=== PATIENT | female | born 1985 | race Caucasian/White ===

== ENCOUNTER → 2020-10-29 | Outpatient (CLI) | payer BC | LOC: RAD 16:32 | DX: E03.9 Hypothyroidism, unspecified (principal) | CPT/HCPCS: 73130; 73630 ==

== ENCOUNTER → 2021-04-15 | Outpatient (CLI) | payer BC | LOC: KOH-I 04-02 13:00 | DX: E07.9 Disorder of thyroid, unspecified (principal) | CPT/HCPCS: 76536 ==